=== PATIENT | male | born 1945 | race Caucasian/White ===

== ENCOUNTER 2018-03-02 16:51 | Emergency (ER) | payer MEDICARE ==
[2018-03-02 17:47] LABS: #Eosinphils 0.2 thou/uL (0.0-0.7); #Lymphocytes 1.2 thou/uL (1.20-3.40); #Monocytes 0.4 thou/uL (0.11-0.59); #Neutrophils 4.6 thou/uL (1.40-6.50); %Basophils 0.2 % (0.0-1.0); %Eosinophils 2.9 % (0.0-10.0); %Lymphocytes 18.7 % (21.0-51.0); %Monocytes 5.8 % (0.0-10.0); %Neutrophils 72.4 % (42.0-75.0); Hemoglobin 15.7 g/dL (14.0-18.0); Mean Corpuscular HGB CONC 32.1 g/dL (32.0-36.0); Mean Corpuscular Hemoglobin 27.5 pg (27.0-31.0); Mean Corpuscular Volume 85.6 fL (78.0-98.0); Mean Platelet Volume 7.3 fL (7.4-10.4); Platelet Count 179 thou/uL (130-400); RBC Distribution Width 13.6 % (11.5-14.5); White Blood Cell (WBC) Count 6.4 thou/uL (4.8-10.8)
[2018-03-02 18:07] LABS: Magnesium 1.8 mg/dL (1.6-2.6)
[2018-03-02 18:08] LABS: ALT (SGPT) 14 U/L (8-55); AST (SGOT) 16 U/L (5-34); Albumin 4.1 g/dL (3.4-4.8); Alkaline Phosphatase 69 U/L (40-150); Anion Gap 16 mmol/L (10-20); BUN (Urea Nitrogen) 14 mg/dL (8.4-25.7); Bilirubin, Total 0.7 mg/dL (0.2-1.2); Calc. Creatinine Clearance 0 mL/min (70-130); Calcium 9.5 mg/dL (7.8-10.44); Carbon Dioxide 27 mmol/L (23-31); Chloride 102 mmol/L (98-107); Estimated GFR-MDRD 79; Globulin 2.5 g/dL (2.4-3.5); Glucose 95 mg/dL (83-110); Potassium 3.6 mmol/L (3.5-5.1); Protein, Total 6.6 g/dL (5.8-8.1); Sodium 141 mmol/L (136-145)
[2018-03-02 18:08] LABS: CKMB 3.2 ng/mL (0-6.6); Troponin I 0.033 ng/mL (< 0.028)
--- NOTE | 2018-03-02 19:08 | RAD ---
CHEST ONE VIEW: 03/02/18 HISTORY: Dyspnea. Fluid overload. COMPARISON: Multiple exams back to 08/07/09. FINDINGS: The cardiac silhouette is unremarkable. Pulmonary vasculature upper limits of normal. Lung markings e xtend beyond skin folds over each side of the chest that mimic pneumothoraces. Multiple well circumsc ribed nodules over each side of the chest are stable compared to exams back to 2009 and likely repres ents skin lesions. No lobar consolidation or evidence of pneumothorax. conveyor monitor leads overlie the chest. IMPRESSION: Stable radiographic appearance of the chest. POS: [facility]
[2018-03-02] MEDS ORDERED: Acetaminophen 500 MG TAB ONE (19:49)
--- NOTE | 2018-03-02 20:01 | CT ---
CT HEAD NONCONTRAST: 03/02/18 HISTORY: Weakness. Brain tumor. FINDINGS: No comparison available. Centered at the right middle cerebellar peduncle is an ill-defined hypodense mass measuring up to 4.9 cm length x 2.89 cm width on the axial images. Slight effacement of the rig ht side of the fourth ventricle without obstruction evident. Third and lateral ventricles are markedl y distended with effacement of the sulci. Septum pellucidum remains midline. Diffuse cortical atrophy . IMPRESSION: Ill-defined, irregular hypodense lesion of the right cerebellum likely represents the historically st ated brain tumor. No hemorrhage is evident. Limited mass effect associated with the tumor. Significant hydrocephalus. Possibly related to normal pressure hydrocephalus given that the fourth ve ntricle appears to be patent. POS: [facility]
--- NOTE | 2018-03-02 20:05 | CT ---
CT CERVICAL SPINE NONCONTRAST: 03/02/18 HISTORY: Neck injury. FINDINGS: Vertebral body heights and alignment are maintained. Cervicothoracic junction is intact. No acute fra cture or dislocation. Multilevel disc space narrowing and osteophytosis. IMPRESSION: Degenerative changes. No acute osseous abnormalities are demonstrated. POS: [facility]
== END 2018-03-02 22:46 ==
LOC: ERS 16:51
DX: R53.1 Weakness (principal); G91.2 (Idiopathic) normal pressure hydrocephalus; I10 Essential (primary) hypertension; J44.9 Chronic obstructive pulmonary disease, unspecified; Z87.891 Personal history of nicotine dependence
CPT/HCPCS: 36415; 70450; 71045; 72125; 80053; 82550; 82553; 83735; 83880; 84443; 84484; 85025; 93005; 94640; J7620

== ENCOUNTER 2018-05-06 10:06 | Outpatient (CLI) | payer MEDICARE ==
--- NOTE | 2018-05-06 13:42 | MRI ---
MRI BRAIN WITH AND WITHOUT CONTRAST: 05/06/2018 TECHNIQUE: Multiplanar, multisequential imaging of brain obtained. Post contrast images obtained, administering 8 mL of MultiHance IV. INDICATIONS: Brain neoplasm with hydrocephalus. COMPARISON: Recent CT head from 03/02/2018, which did show hydrocephalus and the mass at the right cerebellar roldan pedro angle region. FINDINGS: Prominent hydrocephalus is again noted. No restricted diffusion. Minimal ischemic white matter choi ge. There is an enhancing mass at the right cerebellar pontine angle. It measures 2.5 cm in width x 3.7 cm in AP dimension in the axial plane. There are cystic components to this mass. It does extend int o the internal auditory canal. No other mass or abnormal enhancement identified. The intracranial internal carotid arteries and proximal cerebral arteries show flow voids. The basil ar shows a flow void. The dural venous sinuses appear patent. IMPRESSION: 1. 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 FLAIR sequence shows surroundi ng vasogenic edema. This mass extends into the internal auditory canal, and there are cystic compone nts. 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 Meningioma is also a consideration, although lack of a signifi cant dural tail favors an acoustic schwannoma with extension outside the internal auditory canal. 2. Diffuse ventriculomegaly, consistent with hydrocephalus. POS: [facility]
== END 2018-05-06 10:07 | disposition home or self-care (01) ==
LOC: MRI 10:06
PROVIDERS: ATTEND Neurological Surgery
DX: G91.9 Hydrocephalus, unspecified (principal); D49.6 Neoplasm of unspecified behavior of brain
CPT/HCPCS: 70553; 82565